=== PATIENT | female | born 1940 | race Caucasian/White ===

== ENCOUNTER 2016-11-19 15:44 | Emergency (ER) | payer OTHER ==
[~2016-11-19] VITALS: Ht 154.9 cm; Wt 49.9 kg
[~2016-11-19 15:44] MED LIST: ALBU0.084 IN; ATEN-60 PO; FLUO60TA PO; FURO40TA4 PO; HYDR2.5T38 PO; LEVO50TA7 PO; LISI10TA6 PO; LOVA40TA72 PO; OXYM20TA PO; POTA10TA51 PO; TEMA30CA PO; [UNRECOGNIZED DRUG - CODE] OR
[2016-11-19] MEDS ORDERED: SODIUM CHLORIDE 0.9% 1,000 ML IV ONE ×2 (16:15)
[2016-11-19 17:54] LABS: Basophils # (auto) 0 uL; Basophils % (auto) 0.3 % (0.0-2.0); Eosinophils # (auto) 0 uL; Eosinophils % (auto) 0.1 % (0.0-7.0); Hematocrit 40.8 % (36.0-46.0); Hemoglobin 13.5 g/dL (12.2-16.2); Lymphocytes # (auto) 1.9 uL; Lymphocytes % (auto) 19.3 % (10.0-50.0); Mean Corpuscular Hemoglobin 28.3 pg (28.0-32.0); Mean Corpuscular Volume 85.7 fL (80.0-100.0); Mean Platelet Volume 8.2 fL (6.9-10.8); Monocytes # (auto) 0.4 uL; Monocytes % (auto) 4.4 % (0.0-12.0); Neutrophils # (auto) 7.3 uL; Neutrophils % (auto) 75.9 % (37.0-80.0); Platelet Count (auto) 309 10^3/uL (140-450); Red Cell Distribution Width 15.4 % (11.8-14.3); White Blood Cell 9.6 10^3/uL (4.4-10.8)
[2016-11-19 18:01] LABS: Urine Bilirubin Negative (Negative); Urine Blood Negative /uL (Negative); Urine Color Yellow (Yellow); Urine Glucose Normal (Normal); Urine Hyaline Cast MOD /lpf (0 - 2); Urine Ketone Negative (Negative); Urine Mucus FEW (None Seen); Urine Nitrite Negative (Negative); Urine RBC 5 /hpf (0 - 4); Urine Squamous Epithelial Cell FEW /hpf (<5); Urine Urobilinogen Normal (Negative); Urine pH 5.5 (5.0-8.0)
[2016-11-19 18:06] LABS: INR 1.15 (0.9-1.15); Partial Thromboplastin Time 25.2 sec (22.64-33.71); Prothrombin Time 12.6 sec (9.37-12.3)
[2016-11-19 18:15] LABS: Albumin 2.8 g/dL (3.4-5.0); Alkaline Phosphatase 108 U/L (45-117); Anion Gap 8 (5-15); Aspartate Aminotransferase 17 U/L (15-37); BUN/Creatinine Ratio 12.7; Bilirubin, Total 0.4 mg/dL (0.2-1.0); Blood Urea Nitrogen 27 mg/dL (7-18); Calcium 8.6 mg/dL (8.5-10.1); Carbon Dioxide 28 mmol/L (21-32); Chloride 100 mmol/L (98-107); GFR African American 29 mL/min; GFR Non-African American 24 mL/min; Glucose 97 mg/dL (74-106); Sodium 136 mmol/L (136-145); Total Protein 6.2 g/dL (6.4-8.2)
[2016-11-19] MEDS ORDERED: diphenhdrAMINE HCL 50 MG/1 ML VL IV ONE (18:30)
[2016-11-19] MEDS ORDERED: cefTRIAXone 1GM/50ML D5W 50 ML IV ONE (18:30)
[2016-11-19 18:34] LABS: B-Type Natriuretic Peptide 13.49 pg/mL (0-100)
[2016-11-19 19:22] LABS: Temperature: 22.7 C (20.0-25.0)
[2016-11-19] MEDS ORDERED: methylPREDNISolone SOD SUCC 125 MG/2 ML VL IV ONE (19:30)
[2016-11-19 19:52] LABS: TUBE NUMBER TUBE 3
[2016-11-19 19:55] LABS: Description,CSF CLEAR
[2016-11-19] MEDS ORDERED: FAMOTIDINE (10MG/ML) 2ML VL IV ONE (20:45)
[2016-11-20 00:15] VITALS: BP 101/64
== END 2016-11-20 01:09 | disposition home or self-care (01) ==
LOC: EDBD 15:44 → EDUNIT# 15:44 → ER 15:44
DX: T78.3XXA Angioneurotic edema, initial encounter (principal); E86.0 Dehydration; I95.9 Hypotension, unspecified; I11.0 Hypertensive heart disease with heart failure; I50.9 Heart failure, unspecified; J45.909 Unspecified asthma, uncomplicated; E78.5 Hyperlipidemia, unspecified; R51 Headache; Z88.0 Allergy status to penicillin; Z90.49 Acquired absence of other specified parts of digestive tract; Z90.710 Acquired absence of both cervix and uterus; Z88.2 Allergy status to sulfonamides
CPT/HCPCS: 36415; 51702; 62270; 70450; 71010; 71250; 74176; 80053; 81001; 82945; 83880; 84484; 85025; 85610; 85730; 87040; 87070; 87205; 89051; 93005; 96361; 96365; 96375; 99285; J0696; J1200; J2930; J3490; J7030

== ENCOUNTER 2017-01-24 18:46 | Emergency (ER) | payer OTHER ==
[2017-01-24 20:29] LABS: Basophils # (auto) 0 uL; Basophils % (auto) 0.2 % (0.0-2.0); Eosinophils # (auto) 0 uL; Hematocrit 37.4 % (36.0-46.0); Hemoglobin 12.5 g/dL (12.2-16.2); Lymphocytes # (auto) 0.6 uL; Lymphocytes % (auto) 5.6 % (10.0-50.0); Mean Corpuscular Hemoglobin 30.3 pg (28.0-32.0); Mean Corpuscular Hgb Conc. 33.5 g/dL (32.0-36.0); Mean Corpuscular Volume 90.5 fL (80.0-100.0); Mean Platelet Volume 8.4 fL (6.9-10.8); Monocytes # (auto) 0.8 uL; Monocytes % (auto) 7.1 % (0.0-12.0); Neutrophils # (auto) 9.9 uL; Neutrophils % (auto) 87.1 % (37.0-80.0); Platelet Count (auto) 167 10^3/uL (140-450); Red Cell Distribution Width 16.3 % (11.8-14.3); White Blood Cell 11.4 10^3/uL (4.4-10.8)
[2017-01-24 20:47] LABS: Calcium 8.7 mg/dL (8.5-10.1); Potassium 3.4 mmol/L (3.5-5.1)
[2017-01-24 20:50] LABS: Albumin 3.3 g/dL (3.4-5.0); BUN/Creatinine Ratio 16.9
[2017-01-24 20:53] LABS: Bilirubin, Total 1.1 mg/dL (0.2-1.0); Total Protein 7.2 g/dL (6.4-8.2)
[2017-01-24] MEDS ORDERED: ONDANSETRON HCL 4 MG/2 ML VIAL IV ONE (21:45)
[2017-01-24] MEDS ORDERED: MORPHINE SULF INJ 2 MG/ML SYRINGE 1ML IV ONE (21:45)
[2017-01-24 22:33] VITALS: BP 142/75
== END 2017-01-24 23:03 | disposition home or self-care (01) ==
LOC: ER 18:46 → EDBD 18:46 → ER 23:03
DX: S16.1XXA Strain of muscle, fascia and tendon at neck level, initial encounter (principal); S63.502A Unspecified sprain of left wrist, initial encounter; S00.83XA Contusion of other part of head, initial encounter; W06.XXXA Fall from bed, initial encounter; Y93.89 Activity, other specified; Y92.092 Bedroom in other non-institutional residence as the place of occurrence of the external cause; Y99.8 Other external cause status
CPT/HCPCS: 36415; 70486; 72125; 73110; 80053; 85025; 93005; 96374; 96375; 99285; J2270; J2405

== ENCOUNTER 2017-03-02 20:14 | Emergency (ER) | payer OTHER ==
[~2017-03-02] VITALS: Ht 157.5 cm; Wt 43.5 kg
[2017-03-02 21:38] LABS: Basophils # (auto) 0 uL; Basophils % (auto) 0.4 % (0.0-2.0); Eosinophils # (auto) 0 uL; Eosinophils % (auto) 0.1 % (0.0-7.0); Hematocrit 36.4 % (36.0-46.0); Hemoglobin 12.1 g/dL (12.2-16.2); Lymphocytes # (auto) 0.8 uL; Lymphocytes % (auto) 7.8 % (10.0-50.0); Mean Corpuscular Hgb Conc. 33.2 g/dL (32.0-36.0); Mean Corpuscular Volume 90.5 fL (80.0-100.0); Monocytes # (auto) 0.6 uL; Monocytes % (auto) 6.4 % (0.0-12.0); Neutrophils # (auto) 8.4 uL; Neutrophils % (auto) 85.3 % (37.0-80.0); Platelet Count (auto) 261 10^3/uL (140-450); Red Blood Cells 4.02 10^6/uL (4.0-5.20); Red Cell Distribution Width 14.1 % (11.8-14.3); White Blood Cell 9.8 10^3/uL (4.4-10.8)
[2017-03-02 21:51] LABS: Alanine Aminotransferase 18 U/L (13-56); Albumin 2.9 g/dL (3.4-5.0); Alkaline Phosphatase 99 U/L (45-117); Anion Gap 11 (5-15); Aspartate Aminotransferase 11 U/L (15-37); Bilirubin, Total 0.5 mg/dL (0.2-1.0); Blood Urea Nitrogen 21 mg/dL (7-18); Calcium 8.8 mg/dL (8.5-10.1); Carbon Dioxide 23 mmol/L (21-32); Chloride 100 mmol/L (98-107); GFR African American 126 mL/min; GFR Non-African American 104 mL/min; Glucose 107 mg/dL (74-106); Potassium 3.8 mmol/L (3.5-5.1); Sodium 134 mmol/L (136-145); Total Protein 7.5 g/dL (6.4-8.2)
[2017-03-03] MEDS ORDERED: HYDROmorphone HCL 2 MG/ML VL IV ONE (01:15)
[2017-03-03] MEDS ORDERED: ONDANSETRON HCL 4 MG/2 ML VIAL IV ONE (01:15)
[2017-03-03 03:09] VITALS: BP 104/68
== END 2017-03-03 03:40 | disposition home or self-care (01) ==
LOC: EDBD 20:14 → ER 20:19
DX: S20.212A Contusion of left front wall of thorax, initial encounter (principal); J45.909 Unspecified asthma, uncomplicated; E07.9 Disorder of thyroid, unspecified; E78.5 Hyperlipidemia, unspecified; I11.0 Hypertensive heart disease with heart failure; I50.9 Heart failure, unspecified; M54.9 Dorsalgia, unspecified; G89.29 Other chronic pain; M41.9 Scoliosis, unspecified; M81.0 Age-related osteoporosis without current pathological fracture; Z90.710 Acquired absence of both cervix and uterus; Z90.49 Acquired absence of other specified parts of digestive tract; Z88.0 Allergy status to penicillin; X58.XXXA Exposure to other specified factors, initial encounter; Y93.89 Activity, other specified; Y92.89 Other specified places as the place of occurrence of the external cause; Y99.8 Other external cause status
CPT/HCPCS: 36415; 71046; 72131; 80053; 83880; 84484; 85025; 93005; 96374; 96375; 99285; J1170; J2405

== ENCOUNTER 2020-10-11 11:04 | Emergency (ER) | payer OTHER ==
[~2020-10-11] VITALS: Ht 149.9 cm; Wt 43.1 kg
[~2020-10-11 11:04] MED LIST changes: +LISI-716 PO; -LISI10TA6 PO
[2020-10-11] MEDS ORDERED: SODIUM CHLORIDE 0.9% 1,000 ML IV ONE (11:30)
[2020-10-11 11:48] LABS: Basophils # (auto) 0 10 ^3/uL (0-0.2); Basophils % (auto) 0.2 % (0.0-2.0); Eosinophils # (auto) 0 10 ^3/uL (0-0.8); Eosinophils % (auto) 0.1 % (0.0-7.0); Hemoglobin 14.4 g/dL (12.2-16.2); Lymphocytes # (auto) 0.6 10 ^3/uL (0.4-5.4); Mean Corpuscular Hemoglobin 32.3 pg (28.0-32.0); Mean Corpuscular Hgb Conc. 34.4 g/dL (32.0-36.0); Mean Corpuscular Volume 93.8 fL (80.0-100.0); Monocytes # (auto) 0.5 10 ^3/uL (0-1.3); Monocytes % (auto) 4.5 % (0.0-12.0); Neutrophils # (auto) 9.3 10 ^3/uL (1.6-8.6); Neutrophils % (auto) 89.2 % (37.0-80.0); Nucleated Red Blood Cells % 0.1 %; Red Blood Cells 4.48 10^6/uL (4.0-5.20); White Blood Cell 10.4 10^3/uL (4.4-10.8)
[2020-10-11 12:00] LABS: INR 1.18 (0.9-1.15); Partial Thromboplastin Time 22.3 sec (23.6-33.0)
[2020-10-11 12:02] LABS: Albumin 3.6 g/dL (3.4-5.0); Anion Gap 11 (5-15); Blood Urea Nitrogen 9 mg/dL (7-18); Calcium 9.1 mg/dL (8.5-10.1); Carbon Dioxide 23 mmol/L (21-32); Chloride 104 mmol/L (98-107); Glucose 98 mg/dL (74-106); Sodium 138 mmol/L (136-145)
[2020-10-11 12:08] LABS: Alanine Aminotransferase 18 U/L (13-56); Alkaline Phosphatase 71 U/L (45-117); Aspartate Aminotransferase 21 U/L (15-37); BUN/Creatinine Ratio 13.6; GFR African American 112 mL/min; GFR Non-African American 92 mL/min; Total Protein 7.3 g/dL (6.4-8.2)
[2020-10-11 12:32] LABS: Potassium 2.9 mmol/L (3.5-5.1)
[2020-10-11] MEDS ORDERED: POTASSIUM EFFERVESENT TAB 25 MEQ PO ONE (15:30)
[2020-10-11] MEDS ORDERED: cefTRIAXone 1GM/50ML D5W 50 ML IV ONE (15:30)
[2020-10-11] MEDS ORDERED: metroNIDAZOLE 500MG/100ML 100 ML IV ONE (15:30)
[2020-10-11] MEDS ORDERED: ONDANSETRON HCL 4 MG/2 ML VIAL IV ONE ×2 (15:30→19:30)
[2020-10-11 16:09] LABS: Urine Bacteria FEW /hpf (None Seen); Urine Blood Negative /uL (Negative); Urine Specific Gravity 1.016 (1.001-1.035); Urine WBC 11 /hpf (0 - 5)
[2020-10-11] MEDS ORDERED: MORPHINE SULFATE 4 MG/ML SYR/VIAL IV ONE (19:30)
[2020-10-11 20:21] VITALS: BP 164/87
== END 2020-10-11 21:01 | disposition short-term general hospital (02) ==
LOC: ER 11:04 → EDBD 11:04 → ER 21:01
DX: K52.9 Noninfective gastroenteritis and colitis, unspecified (principal); Z20.822 Contact with and (suspected) exposure to COVID-19
CPT/HCPCS: 36415; 71045; 74176; 80053; 81001; 84484; 85025; 85610; 85730; 87426; 93005; 96365; 96368; 96375; 96376; 99285; J0696; J2270; J2405; J3490; J7030

== ENCOUNTER 2024-09-25 11:13 | Emergency (ER) | payer OTHER ==
[~2024-09-25] VITALS: Ht 152.4 cm; Wt 53.0 kg
[~2024-09-25 11:13] MED LIST changes: -LISI-716 PO; +LISI10TA34 PO; +POTA-36 PO; -POTA10TA51 PO
--- NOTE | 2024-09-25 12:55 | ED.PDOC ---
Musculoskeletal HPI Comments 83 year old female presents to the ED via EMS with a chief complaint of RT hip pain and headache s/p fall onset last night. Patient states she was in her backyard, tripped, fell, landed on RT side, is currently experiencing RT hip and RT buttock pain. Patient was able to get up on her own, walk inside. She noticed pain worsens with ambulation. PMHx of asthma, CHF, HLD, HTN, thyroid disease. Denies LOC, neck pain, dizziness, fever, chills, blurry vision, numbness/tingling, chest pain, shortness of breath. No other symptoms or modifying factors present at this time. Patient states that she lives at home alone and feels too weak to go home by herself and is worried that she is going to fall alone. Chief Complaint: Lower Extremity Time Seen by MD: 12:35 Primary Care Provider: MANUEL Reviewed Notes: Medications, Allergies Allergies: Coded Allergies: Penicillins (Verified Allergy, Unknown, 11/19/16) Sulfamethoxazole w/Trimethoprim (Verified Allergy, Unknown, 11/19/16) Uncoded Allergies: Bactrim intolerance, penicillin unknown reaction. (Allergy, Intermediate, 11/28/12) Home Meds Active Scripts Albuterol Sulfate (Albuterol Sulfate) 0.083 % Neb, 0 IN UNK, #1 Prov:JONATHON BOWDEN MD 11/29/12 Atenolol (Atenolol) 25 Mg Tab, 25 MG PO BID, #1 Prov:JONATHON BOWDEN MD 11/29/12 Reported Medications Oxymorphone Hcl (OPANA ER (CRUSH RESISTANT) 20 Mg Tab, 20 MG PO DAILY, #1 11/29/12 Temazepam (Temazepam) 30 Mg Cap, 30 MG PO QHSP, #1 11/29/12 Hydrocodone-Acetaminophen (HYDROCODONE BITARTRATE/AC) 1 Tab Tab, 1 TAB PO Q6HP, #1 11/29/12 Furosemide (Furosemide) 40 Mg Tab, 40 MG PO DAILY, #1 11/29/12 Levothyroxine Sodium (Levothyroxine Sodium) 50 Mcg Tab, 50 MCG PO QAM, #1 11/29/12 Fluoxetine Hcl (FLUOXETINE HCL) 60 Mg Tab, 40 MG PO DAILY, #1 11/29/12 Lisinopril (Lisinopril) 10 Mg Tab, 10 MG PO DAILY, #1 11/29/12 Est Estrogens & Methyltest (Eemt Hs) Tab, 1 OR DAILY, #1 11/29/12 Lovastatin (Lovastatin) 40 Mg Tab, 40 MG PO DAILY, #1 11/29/12 Potassium Chloride (POTASSIUM CHLORIDE CR) 10 Meq Tb, 10 MEQ PO DAILY, #1 11/29/12 Information Source: Patient, Emergency Med Personnel Mode of Arrival: EMS Location: Right Extremity Location: Hip Timing: Hours Prehospital treatment: None Severity: Moderate Able to Move Extremity: Yes Bear Weight: Limited Pain: Moderate Mechanism: Other Circumstances: Fall Onset of Symptoms: After Trauma Symptoms: Pain DVT Risk Factors: CHF History of: Hip Operation (LT) Associated signs and symptoms: Hip pain Past Medical History PAST MEDICAL HISTORY: Asthma, CHF, High Lipids, HTN, Thyroid Surgical History: Cholecystectomy, Hysterectomy, Tonsillectomy [employer] WORKER History: No Pertinent [employer] WORKER History Family History Family History: No family hx of Heart amada Social History Smoker: Non-Smoker Alcohol: Denies ETOH Use Drugs: Denies Drug Use Lives In: Home Musculoskeletal: reports: others (RT hip pain) Physical Exam General Appearance: Mild Distress HEENT: Normal ENT Inspection, Pharynx Normal, TMs Normal Neck: Full Range of Motion, Non-Tender, Normal, Normal Inspection Respiratory: Chest Non-Tender, Lungs Clear, No Accessory Muscle Use, No Respiratory Distress, Normal Breath Sounds Cardiovascular: No Edema, No JVD, No Murmur, No Gallop, Normal Peripheral Pulses, Regular Rate/Rhythm Breast Exam: Deferred Gastrointestinal: No Organomegaly, Non Tender, No Pulsatile Mass, Normal Bowel Sounds, Soft Genitalia: Deferred Pelvic: Deferred Rectal: Deferred Extremities: Other (Right hip with diffuse mild tenderness to palpation although patient does still have full range of motion, no bruising, no swelling, no open wounds, 2+ DP pulse, sensation intact to light touch throughout, full range of motion of knee and ankle and toes.) Musculoskeletal : Apperance: Normal Neurologic: Alert, lens dotter II-XII nml as Tested, No Motor Deficits, Normal Affect, Normal Mood, No Sensory Deficits Cerebellar Function: NOT DONE Reflexes: NOT DONE Skin: Dry, Normal Color, Warm Lymphatic: No Adenopathy Was a procedure done? Was a procedure done?: No Differential Diagnosis EXT Differential Diagnosis: Other (Fracture, dislocation, compartment syndrome, open fracture, traumatic brain injury, subdural, epidural, skull fracture, syncope) X-Ray, Labs, Meds, VS Vital Signs Date Time Temp Pulse Resp B/P (MAP) Pulse Ox O2 Delivery O2 Flow Rate FiO2 09/25/24 19:01 93 17 157/90 09/25/24 18:00 93 17 157/90 (112) 95 09/25/24 16:00 85 17 165/88 (113) 95 09/25/24 16:00 80 09/25/24 15:37 95 Room Air* 0 21 09/25/24 15:31 77 17 95 Room Air* 0 21 09/25/24 15:28 97.4 80 17 107/77 (87) 95 97.4 09/25/24 11:32 98.3 87 20 165/95 99 98.3 Lab Test 09/25/24 13:31 Range/Units White Blood Count 6.4 4.4-10.8 10^3/uL Red Blood Count 4.01 4.0-5.20 10^6/uL Hemoglobin 12.7 12.2-16.2 g/dL Hematocrit 37.4 36.0-46.0 % Mean Corpuscular Volume 93.4 80.0-100.0 fL Mean Corpuscular Hemoglobin 31.8 28.0-32.0 pg Mean Corpuscular Hemoglobin Concent 34.0 32.0-36.0 g/dL Red Cell Distribution Width 13.2 11.8-14.3 % Platelet Count 115 L 140-450 10^3/uL Mean Platelet Volume 7.8 6.9-10.8 fL Neutrophils (%) (Auto) 83.9 H 37.0-80.0 % Lymphocytes (%) (Auto) 10.1 10.0-50.0 % Monocytes (%) (Auto) 4.6 0.0-12.0 % Eosinophils (%) (Auto) 1.2 0.0-7.0 % Basophils (%) (Auto) 0.2 0.0-2.0 % Neutrophils # (Auto) 5.4 1.6-8.6 10 ^3/uL Lymphocytes # (Auto) 0.7 0.4-5.4 10 ^3/uL Monocytes # (Auto) 0.3 0-1.3 10 ^3/uL Eosinophils # (Auto) 0.1 0-0.8 10 ^3/uL Basophils # (Auto) 0 0-0.2 10 ^3/uL Nucleated Red Blood Cells 0.0 % Sodium Level 142 136-145 mmol/L Potassium Level 4.4 3.5-5.1 mmol/L Chloride Level 106 98-107 mmol/L Carbon Dioxide Level 28 20-31 mmol/L Anion Gap 8 5-15 Blood Urea Nitrogen 21 9-23 mg/dL Creatinine 0.71 0.550-1.02 mg/dL Glomerular Filtration Rate Calc 85 >90 mL/min BUN/Creatinine Ratio 29.6 H 10.0-20.0 Serum Glucose 94 74-106 mg/dL Calcium Level 8.8 8.7-10.4 mg/dL Troponin I High Sensitivity 5 </=34 ng/L Current Medications Medications (Trade) Dose Ordered Sig/Mariana Route Start Time Stop Time Status Last Admin Sodium Chloride 500 ml @ 500 mls/hr Q1H ONCE IV 09/25/24 16:00 09/25/24 16:59 DC 09/25/24 16:34 Morphine Sulfate 4 mg ONCE ONCE IV 09/25/24 18:15 09/25/24 18:24 DC 09/25/24 19:01 [place] [address] Ph: [phone] DIAGNOSTIC IMAGING Diagnostic Imaging Report : [id number] Signed PATIENT: GEORGE BELL ACCT: [id number] UNIT: [id number] : 1940 LOC: ER ROOM / BED: / AGE / SEX: 83 / F ADM STATUS: REG ER SERVICE 1238 ORDERING PHYSICIAN: ZAHNNA BLACKBURN MD PROCEDURE(s): RHIP - R HIP COMPLETE XRAY REASON: fall ORDER NUMBER(s): [id number], ACCESSION NUMBER(s): [id number] CLINICAL INDICATION: fall TECHNIQUE: 3 radiographic views of the right hip were obtained. 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 Right hip shows normal bony alignment no fracture or dislocation. No radiopaque foreign bodies in the right thigh or hip ATED BY: ALTAF KIMBROUGH Jr., DO DICTATED DATE/TIME: 09/25/241503 SIGNED BY: ALTAF KIMBROUGH Jr., DO SIGNED DATE/TIME: 09/25/241503 CC: [address] [address] Ph: [phone] DIAGNOSTIC IMAGING Diagnostic Imaging Report : [id number] Signed PATIENT: GEORGE BELL ACCT: [id number] UNIT: [id number] : 1940 LOC: ER ROOM / BED: / AGE / SEX: 83 / F ADM STATUS: REG ER SERVICE 1238 ORDERING PHYSICIAN: ZHANNA BLACKBURN MD PROCEDURE(s): HWOCT - HEAD WITHOUT CONTRAST REASON: fall yesterday ORDER NUMBER(s): [id number], ACCESSION NUMBER(s): [id number] EXAM: CT HEAD WITHOUT CONTRAST HISTORY: fall yesterday COMPARISON: None TECHNIQUE: Noncontrast axial CT images of the head were performed. Sagittal and coronal reformatted images were obtained. This CT exam was performed using 1 or more of the following dose reduction techniques: Automated exposure control, adjustment of the mA and/or kv according to patient size, or the use of iterative reconstruction techniques. Radiation Dose: CTDI volume is 58.38 mGy. Dose-length product is 1265.48 mGy*cm FINDINGS: There is global brain atrophy with prominence of the ventricular system and sulci. No intracranial hemorrhage, mass, midline shift, hydrocephalus, or evidence of acute large vessel infarct. There are postoperative changes of bilateral cataract extraction surgery. There is a mucous retention cyst in the posterior aspect of the left mastoid air cells. The bilateral mastoid air cells and middle ear spaces are clear. No cranial fracture. There may be mild supraorbital frontal scalp edema IMPRESSION: 1. Global brain atrophy without evidence of acute intracranial process. 2. Mild left ethmoid sinus disease. ATED BY: JUANJO DAVE MD DICTATED DATE/TIME: 09/25/241504 SIGNED BY: JUANJO DAVE MD SIGNED DATE/TIME: 08/18/25 1505 CC: X-Ray, Labs, Meds, VS Comment 83-year-old female here today status post ground level fall yesterday with complaints of headache and right hip pain. Vital signs stable, afebrile. Physical exam with the patient neurovascularly intact and without significant evidence of trauma. Labs overall reassuring without evidence of significant acute abnormalities. X-ray of the hip without evidence of acute fracture or dislocation. CT scan of the head with evidence of global atrophy but otherwise no acute findings. Had a long discussion with the patient about her disposition and she states that she does not feel safe going home and is worried that she will be in too much pain or she will follow up by herself and there was no one there to help her. Patient lives alone. Her neighbors help her with acquiring food but otherwise she is on her own. Patient requesting to be admitted. Patient is stable for transfer. Call placed to [facility], pending response at this time. At 3:52 p.m. I discussed the case extensively by phone with [facility] CHIO Verma who will work on transferring the patient, authorization number: [id number] Images Reviewed?: Images reviewed and evaluated by me Time of 1ST Reevaluation: 13:05 Reevaluation 1ST: Unchanged Patient Education/Counseling: Diagnosis, Treatment, Prognosis Family Education/Counseling: No Family Present Additional Information The following tests were ordered, and results were reviewed by me: CT HEAD WO CONTRAST, XY R HIP COMPLETE, BMP, TROP, Additional information was gathered from interviewing the following independent historian: EMS I reviewed and agreed with the following test results read by other provider: CT HEAD WO CONTRAST, XY R HIP COMPLETE, I discussed treatments and results with medical personnel and: PATIENT Comprehensive systems review obtained and negative except for what is stated in the HPI. Departure 1 Departure Time of Disposition: 15:22 Impression: Primary Impression: Right hip pain Additional Impressions: Weakness Fall Unable to care for self Disposition: 02 SHORT TERM HOSPITAL Condition: Stable Critical Care Note Critical Care Time?: No Stability Stability form required: Yes Stable for transfer: To designated facility (As per insurance request, [facility] patient) Heart Score Heart Score: Heart Score Response (Comments) Value History N/A 0 EKG N/A 0 Age N/A 0 Risk Factors N/A 0 Troponin N/A 0 Total 0 I personally scribed for ZHANNA BLACKBURN MD ([facility]) on 09/25/24 at 12:55. Electronically submitted by Saundra Alcala ([email or web address]). I personally scribed for ZHANNA BLACKBURN MD ([facility]) on 09/25/24 at 13:19. Electronically submitted by Saundra Alcala ([email or web address]). I personally scribed for ZHANNA BLACKBURN MD ([facility]) on 09/25/24 at 15:35. Electronically submitted by Saundra Alcala ([email or web address]). ZHANNA BLACKBURN MD Sep 25, 2024 12:55
[2024-09-25 13:41] LABS: Hematocrit 37.4 % (36.0-46.0); Hemoglobin 12.7 g/dL (12.2-16.2); Mean Corpuscular Hemoglobin 31.8 pg (28.0-32.0); Mean Corpuscular Volume 93.4 fL (80.0-100.0); Nucleated Red Blood Cells % 0.0 %
[2024-09-25 13:51] LABS: Chloride 106 mmol/L (98-107); Potassium 4.4 mmol/L (3.5-5.1); Sodium 142 mmol/L (136-145)
[2024-09-25 13:52] LABS: Anion Gap 8 (5-15); Calcium 8.8 mg/dL (8.7-10.4); Carbon Dioxide 28 mmol/L (20-31)
[2024-09-25 13:57] LABS: BUN/Creatinine Ratio 29.6 (10.0-20.0); Blood Urea Nitrogen 21 mg/dL (9-23); Glucose 94 mg/dL (74-106)
--- NOTE | 2024-09-25 15:06 | DVH ---
CLINICAL INDICATION: fall TECHNIQUE: 3 radiographic views of the right hip were obtained. 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 Right hip shows normal bony alignment no fracture or dislocation. No radiopaque foreign bodies in the right thigh or hip
--- NOTE | 2024-09-25 15:07 | DVH ---
EXAM: CT HEAD WITHOUT CONTRAST HISTORY: fall yesterday COMPARISON: None TECHNIQUE: Noncontrast axial CT images of the head were performed. Sagittal and coronal reformatted i mages were obtained. This CT exam was performed using 1 or more of the following dose reduction techn iques: Automated exposure control, adjustment of the mA and/or kv according to patient size, or the u se of iterative reconstruction techniques. Radiation Dose: CTDI volume is 58.38 mGy. Dose-length product is 1265.48 mGy*cm FINDINGS: There is global brain atrophy with prominence of the ventricular system and sulci. No intracranial he morrhage, mass, midline shift, hydrocephalus, or evidence of acute large vessel infarct. There are po stoperative changes of bilateral cataract extraction surgery. There is a mucous retention cyst in the posterior aspect of the left mastoid air cells. The bilateral mastoid air cells and middle ear space s are clear. No cranial fracture. There may be mild supraorbital frontal scalp edema IMPRESSION: 1. Global brain atrophy without evidence of acute intracranial process. 2. Mild left ethmoid sinus disease.
[2024-09-25 15:31] VITALS: PULSE 77; RESP 17; O2SAT 95
[2024-09-25] MEDS: SODIUM CHLORIDE 0.9% 500 ML IV ONE (16:34)
[2024-09-25] MEDS: MORPHINE SULFATE 4 MG/ML SYR/VIAL IV ONE (19:01)
[2024-09-25 20:00] VITALS: PULSE 77; RESP 16; O2SAT 97
[2024-09-25 20:20] VITALS: BP 168/82; PULSE 85; RESP 20; TEMP 98.6; O2SAT 95
== END 2024-09-25 20:41 | disposition short-term general hospital (02) ==
LOC: EDBD 11:13 → ER 11:13
DX: M25.551 Pain in right hip (principal); R53.1 Weakness; R51.9 Headache, unspecified; I11.0 Hypertensive heart disease with heart failure; I50.9 Heart failure, unspecified; E78.5 Hyperlipidemia, unspecified; J45.909 Unspecified asthma, uncomplicated; Z79.899 Other long term (current) drug therapy; Z90.49 Acquired absence of other specified parts of digestive tract; Z90.710 Acquired absence of both cervix and uterus; Z96.642 Presence of left artificial hip joint; Z88.0 Allergy status to penicillin; Z88.1 Allergy status to other antibiotic agents; Z88.2 Allergy status to sulfonamides; W01.0XXA Fall on same level from slipping, tripping and stumbling without subsequent striking against object, initial encounter; Y93.89 Activity, other specified; Y92.89 Other specified places as the place of occurrence of the external cause; Y99.8 Other external cause status
CPT/HCPCS: 36415; 70450; 73502; 80048; 84484; 85025; 96361; 96374; 99285; J2270; J7040

== ENCOUNTER → 2024-11-17 | Emergency (ER) | payer OTHER ==
[~2024-11-17] VITALS: Ht 147.3 cm; Wt 40.1 kg
[2024-11-17 14:28] VITALS: BP 159/110; PULSE 114; RESP 18; TEMP 97.6; O2SAT 96
== END | disposition left against medical advice (07) ==
LOC: ER 14:24
DX: I10 Essential (primary) hypertension (principal); Z53.21 Procedure and treatment not carried out due to patient leaving prior to being seen by health care provider